=== PATIENT | male | born 1955 | race Caucasian/White ===

== ENCOUNTER → 2019-08-05 | Outpatient (CLI) | payer OTHER ==
--- NOTE | 2019-08-05 13:17 | Diagnostic Imaging Report ---
History: Low back pain Comparison studies: None Technique: Sagittal, coronal and axial T2 , sagittal T1 and IR, axial spin density oblique. Intravenous contrast: None Findings: Number of lumbar vertebral bodies:5 Alignment: Normal lordosis.No scoliosis. Soft tissues: No T2 hyperintense inflammatory changes. Paraspinal muscles: No signal abnormalities. No atrophy. Lower thoracic cord:Normal in signal and morphology. The tip of the conus is at L1-L2. Cauda equina: No masses. No arachnoiditis. Vertebrae: Normal in height and signal intensity. No compression fractures, infection or neoplasm. Degenerative changes: L1-L2: No abnormalities. L2-L3: Mild disc degeneration with loss of T2 signal. Mild disc bulge, mild facet hypertrophy and ligamentum flavum thickening results in mild narrowing of the right subarticular recess with patent central canal and foramina. L3-L4: Mild facet hypertrophy with patent canal and foramina. L4-L5: Disc degeneration with loss of T2 signal. Asymmetric left disc bulge, superimposed left central disc protrusion and mild facet hypertrophy results in mild narrowing of the left subarticular recess and mild bilateral foraminal narrowing. The central canal is patent. Trace of fluid at the bilateral facet joints. L5-S1: Disc degeneration with loss of T2 signal and decreased intervertebral space. Mild diffuse disc bulge with patent canal and mild left foraminal narrowing. Additional findings: None IMPRESSION: Mild degenerative narrowing of the left subarticular recess and mild bilateral degenerative foraminal narrowing at L4-L5, without evidence of nerve root impingement. Mild facet hypertrophy at the L3-L4 and L4-L5 with mild synovitis changes in the latter. Other mild degenerative changes without significant (moderate or severe) canal stenosis or foraminal narrowing. Signed by: DR Zana Mcgregor M.D. on 08/05/2019 1:14 PM
--- NOTE | 2019-08-05 13:26 | Diagnostic Imaging Report ---
History:Mid back pain Comparison studies: None Technique: Sagittal T1, T2 and STIR without contrast; axial and coronal T2. Findings: Curvature: Normal kyphosis. No scoliosis. Paraspinal soft tissues: No signal abnormalities. Spinal cord: Normal in size and signal intensity through the tip of the conus at L1-L2 . Vertebrae: Normal in height and signal intensity. No fractures, infection or neoplasm. Disk spaces: Mild disc degeneration with loss of T2 signal from T9. Disk herniations: At T8-9 right central disc protrusion with patent canal and foramina Foramina: Moderate right, mild left degenerative foraminal narrowing at T10-11. The remaining foramina are patent. Spinal canal: Patent. IMPRESSION: 1. Moderate right degenerative foraminal narrowing at T10-11. 2. Remaining foramina and canal are patent Signed by: DR Zana Mcgregor M.D. on 08/05/2019 1:23 PM
== END ==
LOC: MRI 09:29
PROVIDERS: ATTEND Family Medicine
DX: M54.6 Pain in thoracic spine (principal); M54.5 Low back pain; S39.92XA Unspecified injury of lower back, initial encounter
CPT/HCPCS: 72146; 72148